=== PATIENT | male | born 1945 | race Caucasian/White ===

== ENCOUNTER 2020-09-16 06:40 | Inpatient (IN) ==
[2020-09-12 10:55] LABS: Basophils % 0.8 % (0.0-0.8); Eosinophils # 0.2 10*3/uL (0.0-0.87); Eosinophils % 4.6 % (0.00-10.9); Hematocrit 38.1 VOL% (42.0-52.0); Immature Granulocytes % 0.8 %; Immature Granulocytes Absolute 0.03 #; Lymphocytes # 0.6 10*3/uL (1.4-4.0); Lymphocytes % 14.9 % (21.2-54.2); Mean Corpuscular HGB Conc 31.5 GM/DL (32-36); Mean Corpuscular Volume 114.8 FL (87-102); Mean Platelet Volume 10.3 FL (9.6-12.0); Neutrophils % 65.9 % (38.7-73.9); Platelet Count 109 T/CUMM (130-400); Red Blood Count 3.32 MC/CUMM (3.8-5.5); Red Cell Distribution Width 15.5 % (9.3-17.3); White Blood Count 3.7 T/CUMM (4-12)
[2020-09-12 11:05] LABS: Albumin 3.8 G/DL (3.4-5.0); Bilirubin,Total 0.6 MG/DL (0.20-1.00); Calcium 9.1 MG/DL (8.5-10.1); Osmolality,Calculated 285.3 MOS/KG (273-304); Total Protein 8.3 G/DL (6.4-8.2)
[2020-09-12 11:06] LABS: INR 1.2
[~2020-09-16 06:40] MED LIST: LACTATED RINGERS 1,000 ML IV SCH; VANCOMYCIN INJ 500 MG in SODIUM CHLORIDE 0.9% 100 ML IV ONE
[2020-09-16] MEDS ORDERED: NITROGLYCERIN DRIP 0 MG/0 ML BOTTLE IV ONE (07:12)
[2020-09-16] MEDS ORDERED: HEPARIN/NACL 0.9% 2 UNITS/ML 0 UNIT/0 ML BAG IV ONE (07:12)
[2020-09-16] MEDS ORDERED: PHENYLEPHRINE DRIP 0 MG/0 ML PREMIX IV ONE (07:12)
[2020-09-16] MEDS ORDERED: LIDOCAINE 1% 20 ML VIAL ONE (07:54)
[2020-09-16] MEDS ORDERED: HEPARIN 5,000 UNIT/1 ML VIAL ONE (07:54)
[2020-09-16] MEDS ORDERED: fentaNYL 100 MCG/2 ML VIAL ONE ×2 (08:18→10:13)
[2020-09-16] MEDS ORDERED: ePHEDrine 50 MG/ML VIAL ONE (08:18)
[2020-09-16] MEDS ORDERED: HYDROmorphone 2 MG/1 ML VIAL IV PRN ×2 (10:24)
[2020-09-16] MEDS ORDERED: GLUCAGON 1 MG VIAL IM PRN (10:24)
[2020-09-16] MEDS ORDERED: NALOXONE 0.4 MG/ML VIAL IV PRN (10:24)
[2020-09-16] MEDS ORDERED: ONDANSETRON 4 MG/2 ML VIAL IV PRN (10:24)
[2020-09-16] MEDS ORDERED: oxyCODONE/ACETAMINOPHEN 5-325 MG TABLET PO PRN ×2 (10:24)
[2020-09-16] MEDS ORDERED: DEXTROSE 50% 25 GM/50 ML VIAL IV PRN (10:24)
[2020-09-16] MEDS ORDERED: PROMETHAZINE 25 MG/1 ML VIAL IM PRN (10:24)
[2020-09-16] MEDS ORDERED: SUGAMMADEX 200 MG/2 ML VIAL IV ONE (10:25)
[2020-09-16 10:30] LABS: ABG Base Excess -6.3 MMOL/L (-2.5-2.5); ABG HCO3 19.2 MMOL/L (20-26); ABG Oxygen Saturation 90.1 % (95-100); ABG PO2 80.6 MM HG (80-95); ABG TCO2 22.6 MMOL/L (23-27)
[2020-09-16 10:31] LABS: ABG PH 7.152 (7.35-7.45)
[2020-09-16 10:32] LABS: ABG PCO2 69.8 MM HG (35-48)
[2020-09-16] MEDS ORDERED: PHENYLEPHRINE 1 MG/10 ML SYRINGE IV ONE (10:56)
[2020-09-16] MEDS ORDERED: ONDANSETRON 4 MG/2 ML VIAL ONE (10:56)
[2020-09-16] MEDS ORDERED: LACTATED RINGERS 1,000 ML IV ONE (10:56)
[2020-09-16] MEDS ORDERED: PROTAMINE SULFATE 50 MG/5 ML VIAL IV ONE (10:56)
[2020-09-16] MEDS ORDERED: SEVOFLURANE 1 UNIT/15 MINUTE INH ONE (10:56)
[2020-09-16] MEDS ORDERED: LIDOCAINE 2% 5 ML VIAL ONE ×2 (10:56)
[2020-09-16] MEDS ORDERED: ROCURONIUM 50 MG/5 ML VIAL IV ONE (10:56)
[2020-09-16] MEDS ORDERED: HEPARIN 10,000 UNIT/10 ML VIAL ONE (10:56)
[2020-09-16] MEDS ORDERED: propofoL 200 MG/20 ML VIAL IV ONE (10:56)
[2020-09-16] MEDS ORDERED: ETOMIDATE 40 MG/20 ML VIAL IV ONE (10:56)
[2020-09-16] MEDS: INSULIN REGULAR 100 UNIT/ML SUBCUT SCH ×3 (13:58→20:56)
[2020-09-16] MEDS: NITROPRUSSIDE 100 MG in DEXTROSE 5% 250 ML IV SCH (13:59)
[2020-09-16] MEDS: LACTATED RINGERS 1,000 ML IV SCH ×2 (13:59→14:13)
[2020-09-16] MEDS: PHENYLEPHRINE DRIP 40 MG/250 ML PREMIX IV SCH (13:59)
[2020-09-16 14:00] VITALS: BP 123/56
[2020-09-16] MEDS: ALBUTEROL/IPRATROPIUM 3 ML NEB RESP TX SCH (20:09)
[2020-09-17] MEDS: carvediloL 6.25 MG TABLET PO SCH ×2 (00:37→08:12)
[2020-09-17] MEDS: LACTATED RINGERS 1,000 ML IV SCH ×3 (00:38→07:31)
[2020-09-17] MEDS: ALBUTEROL/IPRATROPIUM 3 ML NEB RESP TX SCH ×2 (02:20→07:22)
[2020-09-17] MEDS: INSULIN REGULAR 100 UNIT/ML SUBCUT SCH ×2 (07:32→11:58)
[2020-09-17] MEDS ORDERED: SPIRONOLACTONE 25 MG TABLET PO SCH (09:00)
[2020-09-17] MEDS ORDERED: ROSUVASTATIN 20 MG TABLET PO SCH (09:00)
[2020-09-17] MEDS ORDERED: FUROSEMIDE 40 MG TABLET PO SCH (09:00)
[2020-09-17] MEDS ORDERED: NON-FORMULARY MEDICATION (Vitamin B Complex Tablet) PO SCH (09:00)
[2020-09-17] MEDS ORDERED: LEVOTHYROXINE 175 MCG TABLET PO SCH (09:00)
[2020-09-17] MEDS ORDERED: NF- (Alogliptin 12.5 mg Tablet) PO SCH (09:00)
[2020-09-17] MEDS ORDERED: LORATADINE 10 MG TABLET PO SCH (09:00)
[2020-09-17] MEDS ORDERED: ASPIRIN EC 81 MG TABLET PO SCH ×2 (09:00)
[2020-09-17] MEDS ORDERED: buPROPion 75 MG TABLET PO SCH (09:00)
[2020-09-17] MEDS: NITROPRUSSIDE 100 MG in DEXTROSE 5% 250 ML IV SCH (10:41)
[2020-09-17] MEDS: PHENYLEPHRINE DRIP 40 MG/250 ML PREMIX IV SCH (10:41)
[2020-09-17] MEDS ORDERED: CLOPIDOGREL 75 MG TABLET PO SCH (11:30)
== END 2020-09-17 12:59 | disposition home or self-care (01) | DRG 39 ==
LOC: N.OR 06:40 → N.SDSINP 06:41 → EDSTATUS 13:15 → N.ICU 13:45
PROVIDERS: ADMIT Surgery; ATTEND Surgery